=== PATIENT | female | born 1965 | race Caucasian/White ===

== ENCOUNTER 2022-07-21 12:13 | Outpatient (OUT) | payer BC, SELFPAY ==
--- NOTE | 2022-07-21 12:49 | MM_ITS ---
Patient: GUERO JEFF Exam Date: 07/21/2022 : 1965 Gender:F Ordering : DR. TRUPTI DEE . Admission #: [id number] Family : Order #: [id number] CLICK HERE TO VIEW EXAM RADIOLOGY REPORT PROCEDURE: MM TOMOSYNTHESIS SCREENING BI COMPARISON: MG MAMM SCREEN 3D DESMOND CAD, 05/18/2021. INDICATIONS: Screening Calculator Name NCI Breast Cancer Risk Assessment Tool 5 Year Breast Cancer Risk 6.20% Lifetime Breast Cancer Risk 32.40% Personal Breast Cancer No Personal Ovarian Cancer No Treatments None Family Cancers Mother with breast cancer at age 60; Grandmother-maternal with breast cancer at age 62; Grandmother-maternal with ovarian cancer at age 70; Mother with colon cancer at age 68; Sister with breast cancer at age 58. LOCATION: [facility] BREAST COMPOSITION: Scattered areas fibroglandular density. FINDINGS: DIAGNOSTIC CATEGORY 2--BENIGN FINDING. NO CHANGE FROM COMPARISON. Scattered benign-appearing calcifications are present. Scattered benign-appearing nodules are present. RIGHT BREAST: No significant suspicious finding. LEFT BREAST: No significant suspicious finding. Stable micro clip marker upper outer quadrant, posterior breast RECOMMENDATIONS: ROUTINE MAMMOGRAM AND CLINICAL EVALUATION IN 12 MONTHS. PLEASE NOTE: A NORMAL MAMMOGRAM DOES NOT EXCLUDE THE POSSIBILITY OF BREAST CANCER. A CLINICALLY SUSPICIOUS PALPABLE LUMP SHOULD BE BIOPSIED. Dictated by: Nitish Bone MD on 07/21/2022 at 13:19 Approved by: Nitish Bone MD on 07/21/2022 at 13:21
== END 2022-07-21 12:14 ==
LOC: MAMMO 12:18
PROVIDERS: PCP Family Medicine; Visit Provider Family Medicine
DX: Z12.31 Encounter for screening mammogram for malignant neoplasm of breast (principal); Z80.3 Family history of malignant neoplasm of breast; Z80.0 Family history of malignant neoplasm of digestive organs; Z80.41 Family history of malignant neoplasm of ovary
CPT/HCPCS: 77063; 77067